=== PATIENT | female | born 1980 | race Caucasian/White ===

== ENCOUNTER 2017-08-14 12:38 | Emergency (ER) | payer BC ==
[2017-08-14 14:42] VITALS: BP 115/81
--- NOTE | 2017-08-14 14:57 | UC ---
Abdominal Pain Female HPI - HPI Summary HPI Summary: having dysuria for a couple of days now but took azo otc and now her urine is orange. also has her menses, and abdominal cramping. no vaginal discharge present at this time. - History of Current Complaint Chief Complaint: UCGU Stated Complaint: URINARY COMPLAINT Time Seen by Provider: 08/14/17 14:45 Hx Obtained From: Patient Hx Last Menstrual Period: has menses now ?: No Onset/Duration: Gradual Onset, Lasting Days Severity Initially: Moderate Severity Currently: Moderate Pain Scale Used: 0-10 Numeric - 5/10 Radiates: No Character: Burning Aggravating Factor(s): Nothing Alleviating Factor(s): Nothing - Risk Factors Ectopic Risk Factor: Negative Allergies/Adverse Reactions: Allergies Allergy/AdvReac Type Severity Reaction Status Date / Time Sulfa Antibiotics Allergy Anaphylatic Verified 08/14/17 14:42 Shock Home Medications: Home Medications Pumpkin Seed-Soy Germ [Azo Bladder Control/Go-Le] 1 cap PO DAILY 08/14/17 [ History Confirmed 08/14/17] Tocilizumab* [Actemra*] 200 mg .SEE ORDER MONTHLY 08/14/17 [History Confirmed ] traMADol TAB* [Ultram*] 50 mg PO Q12H PRN 08/14/17 [History Confirmed 08/14/17] PMH/Surg Hx/FS Hx/Imm Hx Previously Healthy: Yes - Surgical History Surgical History: None - Social History Alcohol Use: Rare Substance Use Type: None Smoking Status (MU): Light Every Day Tobacco Smoker Review of Systems Constitutional: Negative Skin: Negative Eyes: Negative ENT: Negative Respiratory: Negative Cardiovascular: Negative Gastrointestinal: Abdominal Pain Genitourinary: Dysuria, Hematuria, Urgency Motor: Negative Neurovascular: Negative Musculoskeletal: Negative Neurological: Negative Psychological: Negative Is Patient Immunocompromised?: Yes - rheumatoid arthritis gets injections All Other Systems Reviewed And Are Negative: Yes Physical Exam Triage Information Reviewed: Yes Appearance: Well-Appearing, No Pain Distress, Well-Nourished Vital Signs: Initial Vital Signs Temp 98.3 F 08/14/17 14:32 Pulse 65 08/14/17 14:32 Resp 16 08/14/17 14:32 BP 115/81 08/14/17 14:32 Pulse Ox 99 08/14/17 14:32 Vital Signs Reviewed: Yes Eyes: Positive: Conjunctiva Clear Neck: Positive: Supple, Nontender Respiratory Exam: Normal Respiratory: Positive: Chest non-tender, Lungs clear Cardiovascular Exam: Normal Abdominal Exam: Normal Abdomen Description: Positive: Nontender, Soft Musculoskeletal Exam: Normal Neurological Exam: Normal Neurological: Positive: Alert Psychological: Positive: Normal Response To Family, Age Appropriate Behavior Abd Pain Female Course/Dx - Course Course Of Treatment: will send urine for c/s since she has taken azo already we can not dip the urine here at - staff will call pt with c/s results. increase fluid intake daily to prevent dehyrdation. treating symptoms - 3 days of antibiotic. f/u with PCP 1 week if symptoms not resolving. take tylenol as need for pain every 4-6 hours - Differential Dx/Diagnosis Provider Diagnoses: UTI Discharge - Discharge Plan Condition: Stable Disposition: HOME Prescriptions: Cephalexin CAP* [Keflex CAP*] 500 mg PO TID 3 Days #9 cap Patient Education Materials: Urinary Tract Infection in Women (ED) Referrals: Constantine Devine DO [Primary Care Provider] - 1 Week
== END 2017-08-14 15:06 | disposition home or self-care (01) ==
LOC: UCCORT 12:38
DX: N39.0 Urinary tract infection, site not specified (principal); R31.9 Hematuria, unspecified; Z88.2 Allergy status to sulfonamides; F17.210 Nicotine dependence, cigarettes, uncomplicated
CPT/HCPCS: 87086; 99202; G0463

== ENCOUNTER 2017-12-08 16:49 | Emergency (ER) | payer BC ==
[2017-12-08 17:40] VITALS: BP 135/70
--- NOTE | 2017-12-08 17:49 | UC ---
Throat Pain/Nasal Pineda HPI - HPI Summary HPI Summary: Pt presents to with report of going sinus pressure and pain x 19 days. Pt states used OTC decongestants, saline spray with improvement but not resolution. Pt states x 5 days increased pressure, ache in fact. Pt reports thick green discharge. Pt states gets "bad taste" in mouth with PND. Pt states recurrent sinus infection. Last abx October. No meds today. Pt left work early second to pain. Pt is on an immunosuppressant agent for RA. No sob,cp, abd pain no n/v no concern for Pt's medications reviewed this visit - History of Current Complaint Chief Complaint: UCGeneralIllness Stated Complaint: SINUS Time Seen by Provider: 12/08/17 17:48 Hx Obtained From: Patient Hx Last Menstrual Period: 11/24/17 Onset/Duration: Gradual Onset Severity: Moderate Pain Intensity: 8 Pain Scale Used: 0-10 Numeric Associated Signs & Symptoms: Positive: Sinus Discomfort, Nasal Discharge - Allergies/Home Medications Allergies/Adverse Reactions: Allergies Allergy/AdvReac Type Severity Reaction Status Date / Time Sulfa (Sulfonamide Allergy Severe anaphlyaxis Verified 12/08/17 17:41 Antibiotics) PMH/Surg Hx/FS Hx/Imm Hx Previously Healthy: No - RA, immunosuppresant - Surgical History Surgical History: None - Family History Known Family History: Positive: Hypertension - Social History Occupation: Employed Full-time Lives: With Family Alcohol Use: Rare Substance Use Type: None Smoking Status (MU): Light Every Day Tobacco Smoker Review of Systems Constitutional: Negative Skin: Negative Eyes: Negative ENT: Nasal Discharge, Sinus Congestion, Sinus Pain/Tenderness Respiratory: Negative Cardiovascular: Negative Gastrointestinal: Negative All Other Systems Reviewed And Are Negative: Yes Physical Exam Triage Information Reviewed: Yes Appearance: Well-Nourished, Other: - tired appearing,congested Vital Signs: Initial Vital Signs Temp 97.6 F 12/08/17 17:36 Pulse 71 12/08/17 17:36 Resp 18 12/08/17 17:36 BP 135/70 12/08/17 17:36 Pulse Ox 99 12/08/17 17:36 Eye Exam: Normal Eyes: Positive: Conjunctiva Clear ENT Exam: Normal ENT: Positive: Normal ENT inspection, Hearing grossly normal, Pharynx normal, Nasal congestion, Other - TMX 2 clear turbinates thick, inflammed, boggy + PND uvula midline no guarding, no rebound abd soft Dental Exam: Normal Neck exam: Normal Neck: Positive: Supple, Nontender, No Lymphadenopathy Respiratory Exam: Normal Respiratory: Positive: Chest non-tender, Lungs clear, Normal breath sounds, No respiratory distress, No accessory muscle use Cardiovascular Exam: Normal Cardiovascular: Positive: RRR, No Murmur, Pulses Normal Abdominal Exam: Normal Abdomen Description: Positive: Nontender, No Organomegaly, Soft Bowel Sounds: Positive: Present Musculoskeletal Exam: Normal Neurological Exam: Normal Neurological: Positive: Alert Psychological Exam: Normal Skin Exam: Normal Throat Pain/Nasal Course/Dx - Course Course Of Treatment: Pt with sinus congestion, facial pressure x 19 days. Pt on immunosuppressnat medications for RA. Will give Rx augmentin. hydrate. motrin/apap. secretion precaution - Differential Dx/Diagnosis Provider Diagnoses: sinusitis Discharge - Sign-Out/Discharge Documenting (check all that apply): Discharge - Discharge Plan Condition: Stable Disposition: HOME Prescriptions: Amoxicillin/Clavulanate TAB* [Augmentin TAB 875*] 875 mg PO BID #20 tab Fluconazole 150 MG (NF) [Diflucan 150 mg (NF)] 150 mg PO ONCE PRN #1 tab PRN Reason: yeast infection Patient Education Materials: Sinusitis (ED) Referrals: No Primary Care Phys,NOPCP [Primary Care Provider] - Additional Instructions: - Stay well hydrated. Drink plenty of non-alcoholic, non-caffinated beverages. - Alternate ibuprofen (Advil, Motrin) 600mg and Tylenol every 3 hours for pain or fever. Take with food. Do NOT take for more than 4-5 days. - okay to gargle and spit with warm salt water, 2-3 times a day - These infections are spread by secretions - do NOT share eating or drinking utensils - clean items you share with other people such as cell phones, computer mouse, TV remote, computer tablets, etc. After you have taken antibiotics for 3 days, change your toothbrush and your pillowcase. - get plenty of restful sleep - humidify the air in the room where you sleep - boil water, run a hot steam shower, vaporizer, cups of water by heat register - okay to take over the counter decongestant and cough medication - contact your doctor, return here, or go to the emergency department with questions or concerns - Billing Disposition and Condition Condition: STABLE Disposition: HOME
== END 2017-12-08 18:06 | disposition home or self-care (01) ==
LOC: UCCORT 16:49
DX: J32.9 Chronic sinusitis, unspecified (principal); F17.200 Nicotine dependence, unspecified, uncomplicated; Z88.0 Allergy status to penicillin
CPT/HCPCS: 99212; G0463